=== PATIENT | female | born 1965 ===

== ENCOUNTER 2025-04-05 06:21 | Day surgery (SDC) | payer BC, SELFPAY | END 2025-04-05 12:17 | disposition home or self-care (01) | LOC: GI 06:21 | PROVIDERS: ATTENDING PHYSICIAN Internal Medicine | DX: R10.13 Epigastric pain (principal); K44.9 Diaphragmatic hernia without obstruction or gangrene; K29.70 Gastritis, unspecified, without bleeding; K29.50 Unspecified chronic gastritis without bleeding | CPT/HCPCS: 43239; 88305; 88342 ==